=== PATIENT | male | born 1975 | race Caucasian/White ===

== ENCOUNTER 2016-12-27 14:03 | Emergency (ER) | payer MEDICARE, MEDICAID ==
[~2016-12-27] VITALS: Ht 182.9 cm; Wt 72.6 kg
[~2016-12-27 14:03] MED LIST: ADVIL200 MG PO; APAP/HYDROCODON1 TA9 PO; FLEXERIL10 MG PO; NEURONTIN800 MG PO
[2016-12-27 14:33] LABS: HEMOGLOBIN 14.5 g/dL (14.1-18.0); LYMPH # 1.9 K/mm3 (0.7-4.5); LYMPH % 16.2 % (10-50)
--- NOTE | 2016-12-27 14:41 | Emergency Room Report ---
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 EMS CALLED OUT BC PT WAS UNRESPONSIVE. 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 N Clinical Suspician of Infection? N Mental Status: 1 - Regular (Normal Baseline) Sepsis Risk:Low Sepsis Risk Have you (or family members/close friends) recently traveled outside the [place]? N If Yes, where/when: Have you had exposure to infectious disease within the past month? TB? Other? Specify: Source patient, RN notes reviewed, family, RN/MD Exam Limitations no limitations Comment This is a 41-year-old gentleman brought in by EMS after he was found unresponsive, at his residence. Patient just noted heroine prior to arrival. He was given for subsequent doses of heroine in order to be revived. Upon arrival in the emergency patient is awake and alert. Patient is a paraplegic as a complication of previous drug related behaviors. ALLERGIES Coded Allergies: No Known Allergies (06/27/16) Home Medications Reported Medications Gabapentin (Neurontin) 800 MG PO BID History Medical History General CAD? No Angina: No AK: No Hypertension? No Hyperlipidemia? No CHF? No DVT? No PE? No COPD? No Asthma? No Anemia? No GERD? No Gastric ulcers? No GI Bleed? No Hernia? No Thyroid Problems? No Hypothyroidism? No CVA? No Seizures? No Diabetes? No Renal Insuffiency? No End Stage Renal Disease? No UTI? No Stones? No BPH? No GB Disease: No Nephritic Syndrome? No Asplenia? No Hepatitis? No Sickle Cell Disease? No Arthritis? No Migraines? No Cataracts? No Glaucoma? No MRSA? No HIV? No TB? No Anxiety? No Depression? No Cancer? No More? 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 Immunization Hx DT/Tetanus 5-10 YRS Pneumonia NEVER Surgical Hx Previous Surgery?Y Back Surgery R LEG LT CARPEL TUNNEL Family History Family Hx Diabetes No CAD No Hypertension Yes Hyperlipidemia No Cancer No TB No Social History Smoking Hx Smoker: Current Every Day Smoker Tobacco: Yes Type Cigarettes Packs/day 1 1/2 - 2 Packs Alcohol Alcohol: Yes Review of Systems All Other Systems Reviewed and Negative Comment Status post overdose Physical Exam Vital Signs Vital Signs Date Time Temp Pulse Resp B/P Pulse O2 O2 Flow FiO2 Ox Delivery Rate 12/27 1532 97.6 83 18 121/81 97 12/27 1406 83 18 112/89 98 General Appearance normal appearance, WD/WN, no apparent distress Respiratory Status Yes: trachea midline, chest symmetrical, non tender chest. No: respiratory distress. Lung Sounds bilateral: normal breath sounds, lungs clear. Cardiovascular normal exam, regular rate/rhythm, no peripheral edema, no gallop, no JVD, no murmur, no rub, normal peripheral pulses Gastrointestinal normal bowel sounds, normal exam, non tender, soft, no organomegaly Extremities non-tender, normal range of motion, normal inspection Neurologic alert, moss bleacher II-XII nml as tested, oriented x 3, motor weakness (both lower extremities), sensory deficit (both lower extremities) Skin intact, normal color, warm/dry Medical Decision Making LABS/Meds/Orders Pt receiving controlled substance in ED? No Comment Patient refused to urinate in order to collect a urine drug screen, however he appears medically stable, in no acute distress. He remains awake and alert, without any relapses of his lethargy/change in mental status. Patient advised to follow up with [facility] in order to obtain outpatient detox treatment. Results/Orders Laboratory Tests 12/27/16 1421: Sodium 143, Potassium 4.5, Chloride 108 H, Carbon Dioxide 29, BUN 12, Creatinine 0.8, Estimated Creat Clear 122, Estimated GFR (MDRD) 106, Glucose 236 H, Calcium 8.5, Total Bilirubin 0.3, AST 39 H, ALT 74, Alkaline Phosphatase 113, Total Protein 8.1, Albumin 3.7, Globulin 4.4 H, Albumin/Globulin Ratio 0.8 L, WBC 11.7 H, RBC 4.74, Hgb 14.5, Hct 46.0, MCV 97.0, RDW 14.5, Plt Count 267 , MPV 6.3 L, Gran % 78.4, Gran # 9.1 H, Lymphocytes % 16.2, Monocytes % 3.9, Eosinophils % 1.3, Basophils % 0.2, Lymphocytes # 1.9, Monocytes # 0.5, Eosinophils # 0.2, Basophils # 0.0, PUBS MCHC 31.6 L, MCH 30.6 12/27/16 1408: Opiates Screen Cancelled, Urine Methadone Screen Cancelled, Barbiturates Cancelled, Phencyclidine Screen Cancelled, Amphetamines Screen Cancelled, Benzodiazepines Screen Cancelled, Cocaine Screen Cancelled, Marijuana (THC) Screen Cancelled, Urine Color Cancelled, Urine Appearance Cancelled, Urine pH Cancelled, Ur Specific [place] Cancelled Current Medication Orders Sig/Tiffanie Start time Last Medication Dose Route Stop Time Status Admin Sodium Chloride 1,000 ML .STK-MED ONE 12/27 1420 DC IV Sodium Chloride 1,000 ML .Q1H1M 12/27 1415 DC 12/27 IV 12/27 1515 1429 Sodium Chloride 10 ML PRN PRN 12/27 1415 DCD IV 12/28 1407 Orders Procedure Date/time Status OXYGEN PER NURSE 12/27 1409 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 12/27 1409 Active CBC WITH AUTO DIFF 12/27 1408 Complete CHEM 12 PROFILE 12/27 1408 Complete Departure Departure Time of Disposition 1509 Disposition DC Home or Self Care(routine) Clinical Impression Primary Impression: Heroin overdose Qualifiers: Encounter type: initial encounter Injury intent: undetermined intent Qualified Code: T40.1X4A - Poisoning by heroin, undetermined, initial encounter Secondary Impressions: Hyperglycemia Condition STABLE Referrals [facility]: Today after leaving ER Please call and schedule a follow-up appointment within the next 2 days Donovan ALDRICH,Ivan Chopra: Tomorrow-Call Office For additional workup regarding your elevated blood sugar, suggestive of possible diabetes Patient Instructions DI for Hyperglycemia -- Adult, Drug Abuse and Drug Addiction Additional Instructions Please follow-up with Dr. Man regarding your elevated blood sugar, possibly suggestive of diabetes mellitus. Follow up with [facility] regarding outpatient counseling related to your drug addiction. Discharge Counseling Counseled pt/family regarding diagnosis, test results, medications/RX, home care, follow up needs Comment Please follow-up with Dr. Man regarding your elevated blood sugar, possibly suggestive of diabetes mellitus. Follow up with [facility] regarding outpatient counseling related to your drug addiction. ED Critical Care Critical Care No at [id number]
--- NOTE | 2016-12-27 14:41 | Emergency Room Report ---
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 EMS CALLED OUT BC PT WAS UNRESPONSIVE. 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 N Clinical Suspician of Infection? N Mental Status: 1 - Regular (Normal Baseline) Sepsis Risk:Low Sepsis Risk Have you (or family members/close friends) recently traveled outside the [place]? N If Yes, where/when: Have you had exposure to infectious disease within the past month? TB? Other? Specify: Source patient, RN notes reviewed, family, RN/MD Exam Limitations no limitations Comment This is a 41-year-old gentleman brought in by EMS after he was found unresponsive, at his residence. Patient just noted heroine prior to arrival. He was given for subsequent doses of heroine in order to be revived. Upon arrival in the emergency patient is awake and alert. Patient is a paraplegic as a complication of previous drug related behaviors. ALLERGIES Coded Allergies: No Known Allergies (06/27/16) Home Medications Reported Medications Gabapentin (Neurontin) 800 MG PO BID History Medical History General CAD? No Angina: No PR: No Hypertension? No Hyperlipidemia? No CHF? No DVT? No PE? No COPD? No Asthma? No Anemia? No GERD? No Gastric ulcers? No GI Bleed? No Hernia? No Thyroid Problems? No Hypothyroidism? No CVA? No Seizures? No Diabetes? No Renal Insuffiency? No End Stage Renal Disease? No UTI? No Stones? No BPH? No GB Disease: No Nephritic Syndrome? No Asplenia? No Hepatitis? No Sickle Cell Disease? No Arthritis? No Migraines? No Cataracts? No Glaucoma? No MRSA? No HIV? No TB? No Anxiety? No Depression? No Cancer? No More? 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 Immunization Hx DT/Tetanus 5-10 YRS Pneumonia NEVER Surgical Hx Previous Surgery?Y Back Surgery R LEG LT CARPEL TUNNEL Family History Family Hx Diabetes No CAD No Hypertension Yes Hyperlipidemia No Cancer No TB No Social History Smoking Hx Smoker: Current Every Day Smoker Tobacco: Yes Type Cigarettes Packs/day 1 1/2 - 2 Packs Alcohol Alcohol: Yes Review of Systems All Other Systems Reviewed and Negative Comment Status post overdose Physical Exam Vital Signs Vital Signs Date Time Temp Pulse Resp B/P Pulse O2 O2 Flow FiO2 Ox Delivery Rate 12/27 1532 97.6 83 18 121/81 97 12/27 1406 83 18 112/89 98 General Appearance normal appearance, WD/WN, no apparent distress Respiratory Status Yes: trachea midline, chest symmetrical, non tender chest. No: respiratory distress. Lung Sounds bilateral: normal breath sounds, lungs clear. Cardiovascular normal exam, regular rate/rhythm, no peripheral edema, no gallop, no JVD, no murmur, no rub, normal peripheral pulses Gastrointestinal normal bowel sounds, normal exam, non tender, soft, no organomegaly Extremities non-tender, normal range of motion, normal inspection Neurologic alert, machine stuffer II-XII nml as tested, oriented x 3, motor weakness (both lower extremities), sensory deficit (both lower extremities) Skin intact, normal color, warm/dry Medical Decision Making LABS/Meds/Orders Pt receiving controlled substance in ED? No Comment Patient refused to urinate in order to collect a urine drug screen, however he appears medically stable, in no acute distress. He remains awake and alert, without any relapses of his lethargy/change in mental status. Patient advised to follow up with [facility] in order to obtain outpatient detox treatment. Results/Orders Laboratory Tests 12/27/16 1421: Sodium 143, Potassium 4.5, Chloride 108 H, Carbon Dioxide 29, BUN 12, Creatinine 0.8, Estimated Creat Clear 122, Estimated GFR (MDRD) 106, Glucose 236 H, Calcium 8.5, Total Bilirubin 0.3, AST 39 H, ALT 74, Alkaline Phosphatase 113, Total Protein 8.1, Albumin 3.7, Globulin 4.4 H, Albumin/Globulin Ratio 0.8 L, WBC 11.7 H, RBC 4.74, Hgb 14.5, Hct 46.0, MCV 97.0, RDW 14.5, Plt Count 267 , MPV 6.3 L, Gran % 78.4, Gran # 9.1 H, Lymphocytes % 16.2, Monocytes % 3.9, Eosinophils % 1.3, Basophils % 0.2, Lymphocytes # 1.9, Monocytes # 0.5, Eosinophils # 0.2, Basophils # 0.0, PUBS MCHC 31.6 L, MCH 30.6 12/27/16 1408: Opiates Screen Cancelled, Urine Methadone Screen Cancelled, Barbiturates Cancelled, Phencyclidine Screen Cancelled, Amphetamines Screen Cancelled, Benzodiazepines Screen Cancelled, Cocaine Screen Cancelled, Marijuana (THC) Screen Cancelled, Urine Color Cancelled, Urine Appearance Cancelled, Urine pH Cancelled, Ur Specific [place] Cancelled Current Medication Orders Sig/Tiffanie Start time Last Medication Dose Route Stop Time Status Admin Sodium Chloride 1,000 ML .STK-MED ONE 12/27 1420 DC IV Sodium Chloride 1,000 ML .Q1H1M 12/27 1415 DC 12/27 IV 12/27 1515 1429 Sodium Chloride 10 ML PRN PRN 12/27 1415 DCD IV 12/28 1407 Orders Procedure Date/time Status OXYGEN PER NURSE 12/27 1409 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 12/27 1409 Active CBC WITH AUTO DIFF 12/27 1408 Complete CHEM 12 PROFILE 12/27 1408 Complete Departure Departure Time of Disposition 1509 Disposition DC Home or Self Care(routine) Clinical Impression Primary Impression: Heroin overdose Qualifiers: Encounter type: initial encounter Injury intent: undetermined intent Qualified Code: T40.1X4A - Poisoning by heroin, undetermined, initial encounter Secondary Impressions: Hyperglycemia Condition STABLE Referrals [facility]: Today after leaving ER Please call and schedule a follow-up appointment within the next 2 days Donovan ALDRICH,Ivan Chopra: Tomorrow-Call Office For additional workup regarding your elevated blood sugar, suggestive of possible diabetes Patient Instructions DI for Hyperglycemia -- Adult, Drug Abuse and Drug Addiction Additional Instructions Please follow-up with Dr. Man regarding your elevated blood sugar, possibly suggestive of diabetes mellitus. Follow up with [facility] regarding outpatient counseling related to your drug addiction. Discharge Counseling Counseled pt/family regarding diagnosis, test results, medications/RX, home care, follow up needs Comment Please follow-up with Dr. Man regarding your elevated blood sugar, possibly suggestive of diabetes mellitus. Follow up with [facility] regarding outpatient counseling related to your drug addiction. ED Critical Care Critical Care No at [phone]
[2016-12-27 15:32] VITALS: BP 121/81
== END 2016-12-27 15:33 | disposition home or self-care (01) ==
LOC: ER 14:03
PROVIDERS: Emergency Medicine
DX: T40.1X4A Poisoning by heroin, undetermined, initial encounter (principal); Z72.0 Tobacco use

== ENCOUNTER 2017-05-08 09:45 | Emergency (ER) | payer MEDICARE, MEDICAID ==
[~2017-05-08] VITALS: Ht 182.9 cm; Wt 72.6 kg
--- NOTE | 2017-05-08 10:16 | Emergency Room Report ---
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 N Clinical Suspician of Infection? Y Mental Status: 1 - Regular (Normal Baseline) Sepsis Risk:Low Sepsis Risk Have you (or family members/close friends) recently traveled outside the [place]? N If Yes, where/when: Have you had exposure to infectious disease within the past month? N TB? Other? Specify: Comment The patient complains of acute urinary retention for 2 days. He is a T for paraplegic. He catheterizes himself 5-10 times a day. For the past 2 days he has not been able to get the catheter Lay inserted, he says it feels like it is meeting an obstruction. He gets small amounts of blood and urine from the catheter. He has some urine leaking out in between catheterizations, which is not normal for him. He denies any vomiting or fever. He says he has not had this problem in the past. ALLERGIES Coded Allergies: No Known Allergies (06/27/16) Home Medications Reported Medications Gabapentin (Neurontin) 800 MG PO BID History Medical History General CAD? No Angina: No CA: No Hypertension? No Hyperlipidemia? No CHF? No DVT? No PE? No COPD? No Asthma? No Anemia? No GERD? No Gastric ulcers? No GI Bleed? No Hernia? No Thyroid Problems? No Hypothyroidism? No CVA? No Seizures? No Diabetes? No Renal Insuffiency? No End Stage Renal Disease? No UTI? No Stones? No BPH? No GB Disease: No Nephritic Syndrome? No Asplenia? No Hepatitis? No Sickle Cell Disease? No Arthritis? No Migraines? No Cataracts? No Glaucoma? No MRSA? No HIV? No TB? No Anxiety? No Depression? No Cancer? No More? 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 Physical Exam Vital Signs Vital Signs Date Time Temp Pulse Resp B/P Pulse O2 O2 Flow FiO2 Ox Delivery Rate 05/08 1352 97.8 62 20 122/62 97 05/08 1344 62 20 122/62 97 05/08 1224 76 20 118/67 97 05/08 1133 82 20 132/76 97 05/08 1119 20 05/08 1109 82 16 128/72 97 05/08 1026 82 16 121/87 97 05/08 0954 97.8 82 16 125/88 97 General Appearance no apparent distress Eye Exam - bilateral eye normal exam, bilateral eye PERRL, bilateral eye EOMI Ear, Nose, Throat hearing grossly normal, normal ENT inspection Neck normal inspection, non-tender, supple, full range of motion Respiratory Status Yes: trachea midline, chest symmetrical, non tender chest. No: respiratory distress. Lung Sounds bilateral: normal breath sounds, lungs clear. Cardiovascular normal exam, regular rate/rhythm, no peripheral edema, no gallop, no JVD, no murmur, no rub, normal peripheral pulses Peripheral Pulses Pulses normal Yes Gastrointestinal normal bowel sounds, soft, no organomegaly, no guarding, no rebound, tenderness (suprapubic) Neurologic alert, oriented x 3 Mental status normal mood/affect Skin intact, normal color, warm/dry Medical Decision Making LABS/Meds/Orders Pt receiving controlled substance in ED? Yes Mateo was queried for this patient? No Reason not queried - emergent pt cond=no time Results/Orders Laboratory Tests 05/08/17 1025: Sodium 140, Potassium 4.4, Chloride 104, Carbon Dioxide 25, BUN 17, Creatinine 0.7 L, Estimated Creat Clear 140, Estimated GFR (MDRD) 123, Glucose 118 H, Calcium 9.6, WBC 10.4, RBC 5.24, Hgb 17.4, Hct 51.0, MCV 97.4, RDW 13.2, Plt Count 256, MPV 8.6, Gran % 78.7, Gran # 8.2 H, Lymphocytes % 15.5, Monocytes % 4.6, Eosinophils % 0.9, Basophils % 0.3, Lymphocytes # 1.6, Monocytes # 0.5, Eosinophils # 0.1, Basophils # 0.0, PUBS MCHC 34.1, MCH 33.2 H Current Medication Orders Sig/Tiffanie Start time Last Medication Dose Route Stop Time Status Admin Gabapentin 0 .STK-MED ONE 05/08 1116 DC .ROUTE Gabapentin 0 .STK-MED ONE 05/08 1116 DC .ROUTE Morphine Sulfate 4 MG ONCE ONE 05/08 1115 DC 05/08 IV 05/08 111 1119 Ondansetron HCl 4 MG ONCE ONE 05/08 1115 DC 05/08 IV 05/08 111 1118 Morphine Sulfate 0 .STK-MED ONE 05/08 111 DC .ROUTE Ondansetron HCl 0 .STK-MED ONE 05/08 111 DC .ROUTE Gabapentin 800 MG ONCE ONE 05/08 1100 DC 05/08 PO 05/08 1101 1117 Sodium Chloride 1,000 ML .STK-MED ONE 05/08 1051 DC IV Sodium Chloride 1,000 ML .Q1H1M 05/08 1045 DC 05/08 IV 05/08 1145 1052 Sodium Chloride 10 ML PRN PRN 05/08 1015 DCD IV 05/09 1012 Orders Procedure Date/time Status DIET-NOTHING BY MOUTH 05/08 L Complete DIET-NOTHING BY MOUTH 05/[address] HEAD REQ 05/[address] ABD/PELVIS REQ 05/08 1044 Complete IV SALINE LOCK 05/08 1012 Active URINARY CATHETER INSERT 05/08 1012 Active URINALYSIS/COMPLETE 05/08 1012 Active CBC WITH AUTO DIFF 05/08 1012 Complete BASIC METABOLIC PROFILE 05/08 1012 Complete XRAY/CT/US XRAY/CT/US CT head, abdomen, pelvis Comment CT scan interpreted by radiologist: Head: Negative Progress - 10:15 AM: The patient is very resistant to having an attempted catheterization in the emergency department. 11:00 AM: The patient's female customer relations consultant states that he says he has also been getting severe pain in the back of his head whenever he lays down for a couple of days. He says he also has not had his Neurontin a couple of days and will get muscle spasms and "jump" when his CT scan is done. CT head added, dose of Neurontin ordered. Departure Departure Disposition DC Home or Self Care(routine) Clinical Impression Primary Impression: Urinary retention Secondary Impressions: Fecal impaction Condition STABLE Referrals Jose David Rodriguez APRN (PCP) Patient Instructions DI for Fecal Impaction, DI for Urinary Retention in Men Additional Instructions Use your suppository today. Contact your physician if you do not have a bowel movement or if continued difficulty with catheterizations. ED Critical Care Critical Care No at 1116
[2017-05-08 10:34] LABS: LYMPH # 1.6 K/mm3 (0.7-4.5); LYMPH % 15.5 % (10-50)
[2017-05-08 10:39] LABS: HEMOGLOBIN 17.4 g/dL (14.1-18.0)
[2017-05-08 13:52] VITALS: BP 122/62
--- NOTE | 2017-05-08 14:49 | RADIOLOGY REPORT PS360 ---
CT HEAD W/O CONTRAST HISTORY: Severe headache posterior headache HEADACHE ORDERING PHYSICIAN: Jonnathan Ordaz MD PATIENT AGE: 41 years COMPARISON: None TECHNIQUE: Axial images obtained without contrast. Brain and bone windows reviewed. FINDINGS: No midline shift, mass effect, intracranial hemorrhage, hydrocephalus, or extra-axial fluid collection is evident. The calvarium has an unremarkable appearance. No mastoid effusion. No sinus air-fluid level. IMPRESSION: No acute intracranial findings
--- NOTE | 2017-05-08 14:49 | RADIOLOGY REPORT PS360 ---
CT ABD PELVIS W/O CONTRAST CLINICAL INDICATION: Lower abdominal pain with nausea LOWER ABD PAIN ORDERING PHYSICIAN: Jonnathan Ordaz MD PATIENT AGE: 41 years COMPARISON: 02/14/2007 TECHNIQUE: Axial images obtained with sagittal and coronal reformats. PROCEDURE: Oral Contrast: None IV Contrast: None . FINDINGS: There is a 5 mm nodular opacity in right lung base posteriorly too small to categorize. A 3 to 4 mm nodules present in the left lung base laterally. No focal liver lesion. No radio opaque gallstone. The spleen and adrenal glands are unremarkable. There are some atrophy of the mid aspect of the body of the pancreas. Pancreas is otherwise unremarkable. No renal calculi or hydronephrosis. No ureteral calculi. No evidence of appendicitis. There is mild amount retained colonic feces and a moderate amount of feces in the rectum. There is a Lay catheter present. No intestinal obstruction or free air. There are postsurgical changes of the lower thoracic spine and right proximal femur. IMPRESSION: 1. Rectal fecal impaction. 2. No acute intra-abdominal or pelvic pathology. 3. Other nonacute findings as described above
== END 2017-05-08 13:53 | disposition home or self-care (01) ==
LOC: ER 09:45
PROVIDERS: Emergency Medicine
DX: R33.9 Retention of urine, unspecified (principal); K56.41 Fecal impaction; F17.210 Nicotine dependence, cigarettes, uncomplicated; G82.20 Paraplegia, unspecified; Z93.50 Unspecified cystostomy status; Z79.899 Other long term (current) drug therapy
CPT/HCPCS: J2405

== ENCOUNTER → 2017-07-26 | Outpatient (CLI) | payer MEDICARE, MEDICAID ==
[2017-07-26 18:45] LABS: AMPHETAMINES/METAMPHETAMINES NEGATIVE ng/mL (<1000)
== END ==
LOC: LAB 16:15
PROVIDERS: Nurse Practitioner Family
DX: Z79.899 Other long term (current) drug therapy (principal)